=== PATIENT | female | born 1950 | race Caucasian/White ===

== ENCOUNTER 2023-02-13 15:23 | Inpatient (IN) | payer MEDICARE, OTHER ==
[~2023-02-13] VITALS: Ht 162.6 cm; Wt 85.3 kg
--- NOTE | 2023-02-13 20:30 | NUR ---
Admitted from [facility] via gurney Dx: S/P Left tibial Osteotomy with external fixator. Alert and oriented x4, in no acute distress. Routine admission care rendered, oriented to room/call light/BR and TV. Care plan initiated. Needs assessed and attended to.
[2023-02-13] MEDS ORDERED: LEVO150T8 PO (21:13)
[2023-02-13] MEDS ORDERED: HYDR-3980 PO (21:13)
[2023-02-13] MEDS ORDERED: EZET10TA15 PO (21:13)
[2023-02-13] MEDS ORDERED: PANT40TA49 PO (21:13)
[2023-02-13] MEDS ORDERED: ACET325T53 PO (21:13)
[2023-02-13] MEDS ORDERED: BUSP10TA3 PO (21:13)
[2023-02-13] MEDS ORDERED: ENOX40DI SQ (21:13)
[2023-02-13] MEDS ORDERED: LIOT5TAB11 PO (21:13)
[2023-02-13] MEDS ORDERED: MIRA25TA PO (21:13)
[2023-02-13 21:15] VITALS: BP 127/56
[2023-02-13] MEDS ORDERED: MYBETRIQ XX SCH (21:45)
[2023-02-13] MEDS ORDERED: ACETAMINOPHEN 325 MG TABLET PO PRN (21:45)
[2023-02-13] MEDS ORDERED: HYDROCODONE/APAP 10-325 MG TABLET PO PRN (21:45)
[2023-02-13] MEDS ORDERED: EZETIMIBE 10 MG TABLET PO SCH (22:00)
[2023-02-13] MEDS ORDERED: busPIRone 10 MG TABLET PO SCH (22:00)
[2023-02-13] MEDS: ACETAMINOPHEN 325 MG TABLET PO PRN (23:36)
[2023-02-14 04:00] VITALS: BP 136/70
[2023-02-14] MEDS: LEVOTHYROXINE SODIUM 150 MCG TABLET PO SCH (06:08)
[2023-02-14] MEDS: LIOTHYRONINE SODIUM 5 MCG TABLET PO SCH (06:08)
[2023-02-14] MEDS: PANTOPRAZOLE SODIUM 40 MG TABLET.DR PO SCH (06:35)
[2023-02-14 08:00] VITALS: BP 110/88
[2023-02-14] MEDS: REMEDY ESSENTIAL ZINC PASTE 113 GM TOP SCH ×3 (09:00→20:16)
[2023-02-14] MEDS: busPIRone 10 MG TABLET PO SCH ×2 (09:02→20:15)
[2023-02-14] MEDS: ACETAMINOPHEN 325 MG TABLET PO PRN ×3 (09:03→20:15)
[2023-02-14] MEDS: ENOXAPARIN SODIUM 40 MG/0.4 ML DISP.SYRIN SQ SCH (09:04)
--- NOTE | 2023-02-14 10:50 | NUR ---
OUT OF HOSPITAL APPOINTMENT: Per major case detective, follow up appointment scheduled with pt's surgeon, Dr. Lyn, , for Saturday02/19/23 at 11:15am. [facility] sweet pickle maker at 10am.
[2023-02-14] MEDS: OXYCODONE HCL 5 MG TABLET PO PRN ×2 (11:28→22:30)
[2023-02-14] MEDS: NEOMY/BACITRAC/POLYMI OINT 28.35 GM TUBE TOP SCH ×2 (14:12→21:04)
[2023-02-14] MEDS: DOCUSATE SODIUM 100 MG CAPSULE PO SCH (18:42)
[2023-02-14 20:00] VITALS: BP 121/57
[2023-02-14] MEDS: EZETIMIBE 10 MG TABLET PO SCH (20:15)
[2023-02-14 22:00] VITALS: BP 121/57
[2023-02-15 04:00] VITALS: BP 138/58
[2023-02-15 04:58] VITALS: BP 138/58
[2023-02-15] MEDS: LEVOTHYROXINE SODIUM 150 MCG TABLET PO SCH (06:19)
[2023-02-15] MEDS: LIOTHYRONINE SODIUM 5 MCG TABLET PO SCH (06:19)
[2023-02-15] MEDS: PANTOPRAZOLE SODIUM 40 MG TABLET.DR PO SCH ×2 (06:38→08:23)
[2023-02-15 07:45] VITALS: BP 129/55
[2023-02-15] MEDS: OXYCODONE HCL 5 MG TABLET PO PRN ×3 (08:24→20:38)
[2023-02-15] MEDS: DOCUSATE SODIUM 100 MG CAPSULE PO SCH ×2 (08:24→16:50)
[2023-02-15] MEDS: busPIRone 10 MG TABLET PO SCH ×2 (08:24→20:18)
[2023-02-15] MEDS: ENOXAPARIN SODIUM 40 MG/0.4 ML DISP.SYRIN SQ SCH (08:37)
[2023-02-15] MEDS: REMEDY ESSENTIAL ZINC PASTE 113 GM TOP SCH ×2 (08:37→20:17)
[2023-02-15] MEDS: NEOMY/BACITRAC/POLYMI OINT 28.35 GM TUBE TOP SCH ×2 (08:38→20:40)
--- NOTE | 2023-02-15 12:12 | NUR ---
WOUND CARE CONSULT: PT PRESENTS WITH SLIGHT REDNESS AND ITCHING TO INNER BUTTOCKS, PRESENT ON ADMISSION. RECOMMENDATIONS MADE FOR SKIN PROTECTION. LEFT LOWER LEG SWELLING NOTED WITH EXTERNAL FIXATOR. SURGICAL FOLLOW UP APPT NEXT SATURDAY. RECOMMEND LEG ELEVATION. DR STONE WAS NOTIFIED OF DPM CONSULT. MD IN AGREEMENT WITH PLAN OF CARE.
[2023-02-15 16:09] VITALS: BP 128/58
[2023-02-15] MEDS: CLOTRIMAZOLE 1% CREAM 30 GM TUBE TOP SCH (16:52)
[2023-02-15 20:07] VITALS: BP 111/45
[2023-02-15] MEDS: EZETIMIBE 10 MG TABLET PO SCH (20:18)
[2023-02-16 04:16] VITALS: BP 135/62
[2023-02-16] MEDS: OXYCODONE HCL 5 MG TABLET PO PRN ×3 (05:37→20:11)
[2023-02-16] MEDS: LEVOTHYROXINE SODIUM 150 MCG TABLET PO SCH (06:01)
[2023-02-16] MEDS: LIOTHYRONINE SODIUM 5 MCG TABLET PO SCH (06:01)
[2023-02-16] MEDS: PANTOPRAZOLE SODIUM 40 MG TABLET.DR PO SCH (06:34)
[2023-02-16 07:30] VITALS: BP 125/49
--- NOTE | 2023-02-16 07:41 | NUR ---
Received patient lying in bed awake, alert and oriented. No signs of distress, no . On room air saturating at 98%. Patient with external fixator on WBAT. Vital signs taken and recorded On cardiac diet. Needs attended
[2023-02-16] MEDS: busPIRone 10 MG TABLET PO SCH ×2 (08:43→20:11)
[2023-02-16] MEDS: DOCUSATE SODIUM 100 MG CAPSULE PO SCH ×2 (08:43→16:53)
[2023-02-16] MEDS: ENOXAPARIN SODIUM 40 MG/0.4 ML DISP.SYRIN SQ SCH (08:45)
[2023-02-16] MEDS: CLOTRIMAZOLE 1% CREAM 30 GM TUBE TOP SCH ×2 (08:46→16:54)
[2023-02-16] MEDS: NEOMY/BACITRAC/POLYMI OINT 28.35 GM TUBE TOP SCH ×2 (08:46→20:14)
[2023-02-16] MEDS: REMEDY ESSENTIAL ZINC PASTE 113 GM TOP SCH ×2 (08:46→20:12)
--- NOTE | 2023-02-16 10:00 | NUR ---
Seen by physical therapist, ambulated using FWW as tolerated
[2023-02-16] MEDS: TOLTERODINE LA 2 MG CAP.SR.24H PO SCH (11:34)
--- NOTE | 2023-02-16 13:04 | NUR ---
Patient complaining of pain Oxycodone 10mg tab given as ordered
--- NOTE | 2023-02-16 14:44 | NUR ---
INDIVIDUALIZED PLAN OF CARE
[2023-02-16 16:00] VITALS: BP 127/62
[2023-02-16] MEDS: EZETIMIBE 10 MG TABLET PO SCH (20:11)
[2023-02-16 20:30] VITALS: BP 120/61
--- NOTE | 2023-02-17 03:34 | NUR ---
AAOx4 All needs attended. VSS No acute distress noted. S/P left tibial osteotomy. LLE with external fixator intact. Kept comfortable. Pain meds given as needed with relief obtained. Will monitor patient. Continent of bowel and bladder. Fall precautions maintained. Siderails up for safety.
[2023-02-17 04:15] VITALS: BP 142/69
[2023-02-17] MEDS: LIOTHYRONINE SODIUM 5 MCG TABLET PO SCH (06:05)
[2023-02-17] MEDS: LEVOTHYROXINE SODIUM 150 MCG TABLET PO SCH (06:05)
[2023-02-17] MEDS: PANTOPRAZOLE SODIUM 40 MG TABLET.DR PO SCH (06:34)
--- NOTE | 2023-02-17 07:52 | NUR ---
[facility] Nursing Notes: Patient is lying awake, with no S/S of distress, AAx 4, S/P Left Tibial Osteotomy. LLE with External Fixator intact. Denies pain at this time, Call light with in reach, fall and safety precautions implemented. Will continue to monitor.
[2023-02-17 08:05] VITALS: BP 125/67
[2023-02-17] MEDS: REMEDY ESSENTIAL ZINC PASTE 113 GM TOP SCH ×2 (08:23→20:58)
[2023-02-17] MEDS: busPIRone 10 MG TABLET PO SCH ×2 (08:36→20:23)
[2023-02-17] MEDS: TOLTERODINE LA 2 MG CAP.SR.24H PO SCH (08:36)
[2023-02-17] MEDS: DOCUSATE SODIUM 100 MG CAPSULE PO SCH ×2 (08:36→16:51)
[2023-02-17] MEDS: CLOTRIMAZOLE 1% CREAM 30 GM TUBE TOP SCH ×2 (08:46→16:52)
[2023-02-17] MEDS: ENOXAPARIN SODIUM 40 MG/0.4 ML DISP.SYRIN SQ SCH (08:46)
[2023-02-17] MEDS: NEOMY/BACITRAC/POLYMI OINT 28.35 GM TUBE TOP SCH ×2 (08:47→21:20)
[2023-02-17 11:45] VITALS: BP 118/55
[2023-02-17] MEDS: OXYCODONE HCL 5 MG TABLET PO PRN ×2 (14:08→20:23)
[2023-02-17 15:51] VITALS: BP 143/76
[2023-02-17] MEDS: EZETIMIBE 10 MG TABLET PO SCH (20:23)
[2023-02-17 20:54] VITALS: BP 140/65
[2023-02-18] MEDS: LIOTHYRONINE SODIUM 5 MCG TABLET PO SCH (06:26)
[2023-02-18] MEDS: LEVOTHYROXINE SODIUM 150 MCG TABLET PO SCH (06:26)
[2023-02-18 06:30] VITALS: BP 139/76
[2023-02-18] MEDS: PANTOPRAZOLE SODIUM 40 MG TABLET.DR PO SCH (06:42)
[2023-02-18 07:44] VITALS: BP 129/76
[2023-02-18] MEDS: TOLTERODINE LA 2 MG CAP.SR.24H PO SCH (09:10)
[2023-02-18] MEDS: DOCUSATE SODIUM 100 MG CAPSULE PO SCH ×2 (09:10→17:40)
[2023-02-18] MEDS: busPIRone 10 MG TABLET PO SCH ×2 (09:10→20:27)
[2023-02-18] MEDS: REMEDY ESSENTIAL ZINC PASTE 113 GM TOP SCH ×2 (09:11→20:21)
[2023-02-18] MEDS: ENOXAPARIN SODIUM 40 MG/0.4 ML DISP.SYRIN SQ SCH (09:11)
[2023-02-18] MEDS: CLOTRIMAZOLE 1% CREAM 30 GM TUBE TOP SCH ×2 (09:13→17:40)
[2023-02-18] MEDS: NEOMY/BACITRAC/POLYMI OINT 28.35 GM TUBE TOP SCH ×2 (09:14→20:21)
--- NOTE | 2023-02-18 10:05 | NUR ---
PATIENT FORGETFUL: Pt told explicitly that she was being given her Buspar medication this AM. Now she is asking PT if she has gotten it yet. This also happened the last time I was caring for her.
[2023-02-18 16:00] VITALS: BP 120/58
[2023-02-18] MEDS: PROTEIN SUPPLEMENT (PROSTAT) 30 ML LIQUID PO SCH (17:40)
[2023-02-18 20:24] VITALS: BP 133/56
[2023-02-18] MEDS: EZETIMIBE 10 MG TABLET PO SCH (20:27)
[2023-02-18] MEDS: OXYCODONE HCL 5 MG TABLET PO PRN (21:29)
[2023-02-19] MEDS ORDERED: ZOLPIDEM 5 MG TABLET PO PRN
[2023-02-19] MEDS: ZOLPIDEM 5 MG TABLET PO PRN (00:43)
[2023-02-19 04:10] VITALS: BP 121/49
[2023-02-19] MEDS: LEVOTHYROXINE SODIUM 150 MCG TABLET PO SCH (06:30)
[2023-02-19] MEDS: PANTOPRAZOLE SODIUM 40 MG TABLET.DR PO SCH (06:31)
[2023-02-19] MEDS: LIOTHYRONINE SODIUM 5 MCG TABLET PO SCH (06:31)
--- NOTE | 2023-02-19 07:11 | NUR ---
RN NOTE: Received pt from MELVA Mullen. Pt. enquired about her BuSpar and was informed that it'd be given as scheduled. LLE with external fixator intact. Pt kept comfortable and Pain Meds given as needed. Pt. used commode x2 during shift. Fall precautions maintained. Side-rails up for safety. Pt requested early breakfast because she has "an Post-op appointment" this morning.
[2023-02-19 07:40] VITALS: BP 130/70
[2023-02-19] MEDS: DOCUSATE SODIUM 100 MG CAPSULE PO SCH ×2 (08:51→17:37)
[2023-02-19] MEDS: GLUCERNA SHAKE 237 ML CAN PO SCH (08:51)
[2023-02-19] MEDS: PROTEIN SUPPLEMENT (PROSTAT) 30 ML LIQUID PO SCH ×2 (08:51→17:37)
[2023-02-19] MEDS: TOLTERODINE LA 2 MG CAP.SR.24H PO SCH (08:51)
[2023-02-19] MEDS: busPIRone 10 MG TABLET PO SCH ×2 (08:51→20:38)
[2023-02-19] MEDS: ENOXAPARIN SODIUM 40 MG/0.4 ML DISP.SYRIN SQ SCH (08:55)
[2023-02-19] MEDS: REMEDY ESSENTIAL ZINC PASTE 113 GM TOP SCH ×2 (08:57→20:38)
[2023-02-19] MEDS: CLOTRIMAZOLE 1% CREAM 30 GM TUBE TOP SCH ×2 (08:57→17:37)
[2023-02-19] MEDS: NEOMY/BACITRAC/POLYMI OINT 28.35 GM TUBE TOP SCH ×2 (08:57→20:38)
[2023-02-19] MEDS: OXYCODONE HCL 5 MG TABLET PO PRN (09:09)
[2023-02-19 16:00] VITALS: BP 142/74
--- NOTE | 2023-02-19 19:37 | NUR ---
Patient went to follow up ortho appointment this morning return with recommendations, order for pain management and next follow up visit. Recommendations for pain medications text to Dr Mix awaiting reply. Endorsed to oncoming nurse to follow up.
[2023-02-19] MEDS: EZETIMIBE 10 MG TABLET PO SCH (20:38)
[2023-02-19] MEDS: ACETAMINOPHEN ES 500 MG TABLET PO SCH (20:47)
[2023-02-19 21:25] VITALS: BP 125/61
--- NOTE | 2023-02-20 03:36 | NUR ---
AAOx4 All needs attended. LLE with external fixator in placed. (+) good circulation, (+) pulses. Tolerated po meds well. No acute distress noted. Fall precautions maintained.All due meds given without difficulty. Denies any pain at this time. Tylenol given as scheduled. OOB to bedside commode. Voiding well.VSS.
[2023-02-20 06:07] VITALS: BP 114/56
[2023-02-20] MEDS: LIOTHYRONINE SODIUM 5 MCG TABLET PO SCH (06:11)
[2023-02-20] MEDS: LEVOTHYROXINE SODIUM 150 MCG TABLET PO SCH (06:12)
[2023-02-20] MEDS: PANTOPRAZOLE SODIUM 40 MG TABLET.DR PO SCH (06:32)
[2023-02-20 07:46] VITALS: BP 134/62
[2023-02-20] MEDS: busPIRone 10 MG TABLET PO SCH ×2 (08:52→20:45)
[2023-02-20] MEDS: TOLTERODINE LA 2 MG CAP.SR.24H PO SCH (08:52)
[2023-02-20] MEDS: DOCUSATE SODIUM 100 MG CAPSULE PO SCH ×2 (08:52→17:21)
[2023-02-20] MEDS: ACETAMINOPHEN ES 500 MG TABLET PO SCH ×5 (08:56→20:45)
[2023-02-20] MEDS: GLUCERNA SHAKE 237 ML CAN PO SCH (08:56)
[2023-02-20] MEDS: PROTEIN SUPPLEMENT (PROSTAT) 30 ML LIQUID PO SCH ×2 (08:57→17:21)
[2023-02-20] MEDS: ENOXAPARIN SODIUM 40 MG/0.4 ML DISP.SYRIN SQ SCH (08:59)
[2023-02-20] MEDS: REMEDY ESSENTIAL ZINC PASTE 113 GM TOP SCH ×2 (09:00→20:45)
[2023-02-20] MEDS: NEOMY/BACITRAC/POLYMI OINT 28.35 GM TUBE TOP SCH ×2 (09:01→20:48)
[2023-02-20] MEDS: CLOTRIMAZOLE 1% CREAM 30 GM TUBE TOP SCH ×3 (09:01→17:21)
--- NOTE | 2023-02-20 13:45 | NUR ---
INTERDISCIPLINARY TEAM CONFERENCE
[2023-02-20 15:46] VITALS: BP 105/61
[2023-02-20 19:48] VITALS: BP 103/52
[2023-02-20] MEDS: EZETIMIBE 10 MG TABLET PO SCH (20:45)
[2023-02-20] MEDS: OXYCODONE HCL 5 MG TABLET PO PRN (22:21)
[2023-02-21 04:45] VITALS: BP 144/68
--- NOTE | 2023-02-21 05:38 | NUR ---
AAOx4 All needs attended. VSS. Condition unchanged. VSS. OOB to bedside commode. Voiding well Kept comfortable. All due meds given. Medicated for pain as needed with relief noted. LLE external fixator intact. Will monitor patient.
[2023-02-21] MEDS: LEVOTHYROXINE SODIUM 150 MCG TABLET PO SCH (06:07)
[2023-02-21] MEDS: LIOTHYRONINE SODIUM 5 MCG TABLET PO SCH (06:07)
[2023-02-21] MEDS: PANTOPRAZOLE SODIUM 40 MG TABLET.DR PO SCH (06:32)
[2023-02-21 06:59] LABS: MEAN CORPUSCULAR HEMOGLOBIN 29.3 uug (24.7-32.8); MEAN CORPUSCULAR VOLUME 89.9 fL (75.5-95.3); PLATELET COUNT (AUTO) 285 K/uL (179-408)
[2023-02-21 07:31] LABS: IRON, SERUM 62 ug/dL (50-175)
[2023-02-21 07:39] LABS: THYROID STIMULATING HORMONE 3.429 mIU/mL (0.358-3.740)
[2023-02-21 07:46] LABS: ALANINE AMINOTRANSFERASE 20 U/L (14-59); ALKALINE PHOSPHATASE 86 U/L (50-136); ASPARTATE AMINOTRANSFERASE 24 U/L (15-37); BILIRUBIN,TOTAL 0.3 mg/dL (0.2-1.0); CARBON DIOXIDE 31 mmol/L (21-32); CHLORIDE 104 mmol/L (98-107); CHOLESTEROL 190 mg/dL (<200); CREATININE 0.7 mg/dL (0.6-1.3); GLUCOSE 91 mg/dL (74-106); HDL CHOLESTEROL 49 mg/dL (40-60); MAGNESIUM 2.2 mg/dL (1.8-2.4); POTASSIUM 3.6 mmol/L (3.5-5.1); TOTAL PROTEIN, SERUM 6.7 g/dL (6.4-8.2); TRIGLYCERIDES 113 MG/DL (30-150); UREA NITROGEN, BLOOD 13 mg/dL (7-18)
[2023-02-21 08:01] VITALS: BP 123/44
[2023-02-21] MEDS: ACETAMINOPHEN ES 500 MG TABLET PO SCH ×3 (08:16→20:18)
[2023-02-21] MEDS: DOCUSATE SODIUM 100 MG CAPSULE PO SCH ×2 (08:16→16:39)
[2023-02-21] MEDS: TOLTERODINE LA 2 MG CAP.SR.24H PO SCH (08:16)
[2023-02-21] MEDS: GLUCERNA SHAKE 237 ML CAN PO SCH (08:17)
[2023-02-21] MEDS: ENOXAPARIN SODIUM 40 MG/0.4 ML DISP.SYRIN SQ SCH (08:17)
[2023-02-21] MEDS: busPIRone 10 MG TABLET PO SCH ×2 (08:17→20:17)
[2023-02-21] MEDS: REMEDY ESSENTIAL ZINC PASTE 113 GM TOP SCH ×2 (08:18→20:18)
[2023-02-21] MEDS: PROTEIN SUPPLEMENT (PROSTAT) 30 ML LIQUID PO SCH ×2 (09:00→17:00)
[2023-02-21] MEDS: CLOTRIMAZOLE 1% CREAM 30 GM TUBE TOP SCH ×2 (09:02→17:20)
[2023-02-21] MEDS: NEOMY/BACITRAC/POLYMI OINT 28.35 GM TUBE TOP SCH ×2 (09:12→20:19)
[2023-02-21 16:00] VITALS: BP 127/64
[2023-02-21] MEDS: OXYCODONE HCL 5 MG TABLET PO PRN (16:39)
[2023-02-21 20:00] VITALS: BP 116/63
[2023-02-21] MEDS: EZETIMIBE 10 MG TABLET PO SCH (20:17)
[2023-02-21] MEDS: ZOLPIDEM 5 MG TABLET PO PRN (20:18)
[2023-02-21] MEDS ORDERED: ATORVASTATIN 10 MG TABLET PO SCH (21:00)
[2023-02-22 04:00] VITALS: BP 128/62
[2023-02-22] MEDS: OXYCODONE HCL 5 MG TABLET PO PRN (04:48)
--- NOTE | 2023-02-22 04:48 | NUR ---
AAOx4 OOB to bedside commode. Voiding well. LLE external fixator intact. LLE swollen and warm to touch. All needs attended and met. VSS. Pain meds given as needed. Will monitor patient.
[2023-02-22] MEDS: LEVOTHYROXINE SODIUM 150 MCG TABLET PO SCH (06:09)
[2023-02-22] MEDS: LIOTHYRONINE SODIUM 5 MCG TABLET PO SCH (06:09)
[2023-02-22] MEDS: PANTOPRAZOLE SODIUM 40 MG TABLET.DR PO SCH (06:30)
--- NOTE | 2023-02-22 07:00 | NUR ---
Received patient lying in bed awake, alert and oriented. No signs of distress,. On room air Patient with external fixator on WBAT.. Needs attended call light with in reach
[2023-02-22 07:48] VITALS: BP 121/71
[2023-02-22] MEDS: DOCUSATE SODIUM 100 MG CAPSULE PO SCH ×2 (08:09→16:15)
[2023-02-22] MEDS: busPIRone 10 MG TABLET PO SCH ×2 (08:09→21:08)
[2023-02-22] MEDS: ACETAMINOPHEN ES 500 MG TABLET PO SCH ×3 (08:09→19:45)
[2023-02-22] MEDS: TOLTERODINE LA 2 MG CAP.SR.24H PO SCH (08:09)
[2023-02-22] MEDS: ENOXAPARIN SODIUM 40 MG/0.4 ML DISP.SYRIN SQ SCH (08:10)
[2023-02-22] MEDS: GLUCERNA SHAKE 237 ML CAN PO SCH (08:34)
[2023-02-22] MEDS: REMEDY ESSENTIAL ZINC PASTE 113 GM TOP SCH ×2 (08:35→21:07)
[2023-02-22] MEDS: CLOTRIMAZOLE 1% CREAM 30 GM TUBE TOP SCH ×2 (08:35→16:15)
[2023-02-22] MEDS: PROTEIN SUPPLEMENT (PROSTAT) 30 ML LIQUID PO SCH ×2 (08:35→16:15)
[2023-02-22] MEDS: NEOMY/BACITRAC/POLYMI OINT 28.35 GM TUBE TOP SCH ×2 (08:36→21:08)
--- NOTE | 2023-02-22 10:36 | NUR ---
Seen by physical therapist, ambulated using FWW as tolerated
[2023-02-22 16:16] VITALS: BP 101/46
[2023-02-22] MEDS: ACETAMINOPHEN 325 MG TABLET PO PRN ×2 (19:30→19:31)
[2023-02-22] MEDS ORDERED: ACETAMINOPHEN ES 500 MG TABLET PO SCH (19:45)
--- NOTE | 2023-02-22 19:52 | NUR ---
Tylenol ES 2 tabs oral given earlier as scheduled per patient request.
[2023-02-22 20:13] VITALS: BP 94/49
[2023-02-22] MEDS: EZETIMIBE 10 MG TABLET PO SCH (21:08)
[2023-02-22] MEDS: ZOLPIDEM 5 MG TABLET PO PRN (21:08)
[2023-02-23 04:00] VITALS: BP 137/62
[2023-02-23] MEDS: PANTOPRAZOLE SODIUM 40 MG TABLET.DR PO SCH (05:42)
[2023-02-23] MEDS: LIOTHYRONINE SODIUM 5 MCG TABLET PO SCH (05:42)
[2023-02-23] MEDS: LEVOTHYROXINE SODIUM 150 MCG TABLET PO SCH (05:42)
--- NOTE | 2023-02-23 06:18 | NUR ---
Uneventful night. Slept good, no complaint of pain/discomforts presented. All needs attended and met. Vs stable. Patient quite needy, demanding and rude and has attitude. Continue current rehab plan of care.
--- NOTE | 2023-02-23 07:10 | NUR ---
patient in her room, awake with no S/S of discomforts noted, fall and safety precautions implemented. will continue to monitor. call light with in reach
[2023-02-23] MEDS: ACETAMINOPHEN ES 500 MG TABLET PO SCH ×3 (08:02→20:01)
[2023-02-23] MEDS: busPIRone 10 MG TABLET PO SCH ×2 (08:02→20:01)
[2023-02-23] MEDS: TOLTERODINE LA 2 MG CAP.SR.24H PO SCH (08:02)
[2023-02-23] MEDS: DOCUSATE SODIUM 100 MG CAPSULE PO SCH ×2 (08:02→16:27)
[2023-02-23] MEDS: ENOXAPARIN SODIUM 40 MG/0.4 ML DISP.SYRIN SQ SCH (08:03)
[2023-02-23 08:08] VITALS: BP 130/69
[2023-02-23] MEDS: PROTEIN SUPPLEMENT (PROSTAT) 30 ML LIQUID PO SCH ×2 (08:38→16:27)
[2023-02-23] MEDS: GLUCERNA SHAKE 237 ML CAN PO SCH ×3 (08:39→16:27)
[2023-02-23] MEDS: CLOTRIMAZOLE 1% CREAM 30 GM TUBE TOP SCH ×2 (08:39→16:27)
[2023-02-23] MEDS: REMEDY ESSENTIAL ZINC PASTE 113 GM TOP SCH ×2 (08:39→20:02)
[2023-02-23] MEDS: NEOMY/BACITRAC/POLYMI OINT 28.35 GM TUBE TOP SCH ×2 (08:40→20:02)
--- NOTE | 2023-02-23 15:41 | NUR ---
Seen by physical therapist, ambulated using FWW as tolerated
--- NOTE | 2023-02-23 15:45 | NUR ---
Patient is lying in bed awake, with no S/S of distress, Denies pain at this time, Call light with in reach, fall and safety precautions implemented. Will continue to monitor.
[2023-02-23 16:45] VITALS: BP 104/56
[2023-02-23] MEDS: ZOLPIDEM 5 MG TABLET PO PRN (20:01)
[2023-02-23] MEDS: EZETIMIBE 10 MG TABLET PO SCH (20:01)
[2023-02-23 20:11] VITALS: BP 118/53
[2023-02-23] MEDS: OXYCODONE HCL 5 MG TABLET PO PRN (22:00)
[2023-02-24 04:21] VITALS: BP 124/55
[2023-02-24] MEDS: LIOTHYRONINE SODIUM 5 MCG TABLET PO SCH (05:39)
[2023-02-24] MEDS: LEVOTHYROXINE SODIUM 150 MCG TABLET PO SCH (05:39)
[2023-02-24] MEDS: PANTOPRAZOLE SODIUM 40 MG TABLET.DR PO SCH (05:39)
[2023-02-24] MEDS: ACETAMINOPHEN 325 MG TABLET PO PRN ×2 (05:44→05:52)
[2023-02-24] MEDS: ACETAMINOPHEN ES 500 MG TABLET PO SCH ×3 (05:50→19:50)
--- NOTE | 2023-02-24 05:56 | NUR ---
Tylenol ES given unscheduled per patient request.
--- NOTE | 2023-02-24 07:00 | NUR ---
patient in her room, lying in bed awake at this time with no S/S of discomforts noted, fall and safety precautions implemented. will continue to monitor. call light with in reach
[2023-02-24] MEDS: busPIRone 10 MG TABLET PO SCH ×2 (08:01→20:29)
[2023-02-24] MEDS: TOLTERODINE LA 2 MG CAP.SR.24H PO SCH (08:01)
[2023-02-24] MEDS: DOCUSATE SODIUM 100 MG CAPSULE PO SCH ×2 (08:01→16:25)
[2023-02-24] MEDS: ENOXAPARIN SODIUM 40 MG/0.4 ML DISP.SYRIN SQ SCH (08:02)
[2023-02-24 08:38] VITALS: BP 136/52
[2023-02-24] MEDS: PROTEIN SUPPLEMENT (PROSTAT) 30 ML LIQUID PO SCH ×2 (09:00→16:27)
[2023-02-24] MEDS: REMEDY ESSENTIAL ZINC PASTE 113 GM TOP SCH (09:44)
[2023-02-24] MEDS: GLUCERNA SHAKE 237 ML CAN PO SCH ×2 (09:44→16:26)
[2023-02-24] MEDS: CLOTRIMAZOLE 1% CREAM 30 GM TUBE TOP SCH (09:45)
[2023-02-24 16:06] VITALS: BP 115/73
[2023-02-24 20:00] VITALS: BP 134/72
[2023-02-24] MEDS: ZOLPIDEM 5 MG TABLET PO PRN (20:29)
[2023-02-24] MEDS: EZETIMIBE 10 MG TABLET PO SCH (20:29)
[2023-02-25 04:00] VITALS: BP 125/59
[2023-02-25] MEDS: LEVOTHYROXINE SODIUM 150 MCG TABLET PO SCH (05:55)
[2023-02-25] MEDS: PANTOPRAZOLE SODIUM 40 MG TABLET.DR PO SCH (05:55)
[2023-02-25] MEDS: LIOTHYRONINE SODIUM 5 MCG TABLET PO SCH (05:55)
[2023-02-25] MEDS: ACETAMINOPHEN ES 500 MG TABLET PO SCH ×3 (05:56→20:07)
[2023-02-25 07:46] VITALS: BP 134/62
[2023-02-25] MEDS: busPIRone 10 MG TABLET PO SCH ×2 (08:58→20:07)
[2023-02-25] MEDS: TOLTERODINE LA 2 MG CAP.SR.24H PO SCH (08:58)
[2023-02-25] MEDS: DOCUSATE SODIUM 100 MG CAPSULE PO SCH ×2 (08:58→17:38)
[2023-02-25] MEDS: ENOXAPARIN SODIUM 40 MG/0.4 ML DISP.SYRIN SQ SCH (09:04)
[2023-02-25] MEDS: OXYCODONE HCL 5 MG TABLET PO PRN (09:05)
[2023-02-25] MEDS: GLUCERNA SHAKE 237 ML CAN PO SCH ×2 (09:05→17:38)
[2023-02-25] MEDS: PROTEIN SUPPLEMENT (PROSTAT) 30 ML LIQUID PO SCH ×3 (09:06→17:44)
[2023-02-25 16:06] VITALS: BP 124/50
--- NOTE | 2023-02-25 18:01 | NUR ---
18:00 Pins from external fixator were assessed, cleaned and painted with Betadine per order. No signs of infection noted. Pt tolerated procedure well.
[2023-02-25] MEDS: EZETIMIBE 10 MG TABLET PO SCH (20:07)
[2023-02-25] MEDS: ZOLPIDEM 5 MG TABLET PO PRN ×2 (20:12→20:15)
[2023-02-25 20:37] VITALS: BP 120/61
[2023-02-26] MEDS: OXYCODONE HCL 5 MG TABLET PO PRN ×2 (00:57→07:03)
[2023-02-26 04:06] VITALS: BP 128/57
[2023-02-26] MEDS: LEVOTHYROXINE SODIUM 150 MCG TABLET PO SCH (06:03)
[2023-02-26] MEDS: LIOTHYRONINE SODIUM 5 MCG TABLET PO SCH (06:03)
[2023-02-26] MEDS: PANTOPRAZOLE SODIUM 40 MG TABLET.DR PO SCH (06:42)
--- NOTE | 2023-02-26 07:25 | NUR ---
RN NOTE -Patient is lying in bed awake, with no S/S of distress. Pt requested pain medication and sleep aid Call light with in reach, fall and safety precautions implemented. Will continue to monitor.
[2023-02-26 07:43] VITALS: BP 118/49
--- NOTE | 2023-02-26 08:00 | NUR ---
Awake, alert, oriented x 4. LLE with external fixator. Denies pain at this time. Concerned about DC plan for today
[2023-02-26] MEDS: busPIRone 10 MG TABLET PO SCH (08:42)
[2023-02-26] MEDS: TOLTERODINE LA 2 MG CAP.SR.24H PO SCH (08:43)
[2023-02-26] MEDS: DOCUSATE SODIUM 100 MG CAPSULE PO SCH (08:43)
[2023-02-26] MEDS: ACETAMINOPHEN ES 500 MG TABLET PO SCH ×2 (08:44→12:21)
[2023-02-26] MEDS: PROTEIN SUPPLEMENT (PROSTAT) 30 ML LIQUID PO SCH (08:45)
[2023-02-26] MEDS: GLUCERNA SHAKE 237 ML CAN PO SCH (08:45)
[2023-02-26] MEDS: ENOXAPARIN SODIUM 40 MG/0.4 ML DISP.SYRIN SQ SCH (08:49)
--- NOTE | 2023-02-26 14:25 | NUR ---
With discharge order to SNF. Report given to Tre. DC instruction given, verbalized understanding. Discharged in fair condition, not in distress. afebrile, with external fixator
== END 2023-02-26 14:25 | DRG 560 ==
LOC: MEDSURG3 20:44
PROVIDERS: ADMIT Physical Medicine & Rehabilitation Pain Medicine; ATTEND Physical Medicine & Rehabilitation Pain Medicine
DX: S82.202D Unspecified fracture of shaft of left tibia, subsequent encounter for closed fracture with routine healing (principal); D68.59 Other primary thrombophilia; Z47.89 Encounter for other orthopedic aftercare; R53.1 Weakness; X58.XXXD Exposure to other specified factors, subsequent encounter; E03.9 Hypothyroidism, unspecified; E78.5 Hyperlipidemia, unspecified; N32.81 Overactive bladder; R62.7 Adult failure to thrive; Z96.651 Presence of right artificial knee joint; E66.9 Obesity, unspecified; Z68.32 Body mass index [BMI] 32.0-32.9, adult; Z88.6 Allergy status to analgesic agent
CPT/HCPCS: 36415; 83550; 83735; 84100; 84443; 85025; 97535-GO-CO; A4663; A9150; J1650

== ENCOUNTER 2023-03-17 19:29 | Emergency (ER) | payer MEDICARE, OTHER ==
[~2023-03-17] VITALS: Ht 165.1 cm; Wt 72.6 kg
[~2023-03-17 19:29] MED LIST: ACET325T53 PO; BUSP10TA3 PO; ENOX40DI SQ; EZET10TA15 PO; HYDR-3980 PO; LEVO150T8 PO; LIOT5TAB11 PO; MIRA25TA PO; PANT40TA49 PO
--- NOTE | 2023-03-17 19:30 | NUR ---
PT BIBA FOR COVID SYMTOMS.
--- NOTE | 2023-03-17 19:50 | NUR ---
Pt stated not to call her son because son "disowned her".
--- NOTE | 2023-03-17 19:55 | NUR ---
AT BEDSIDE FOR EVAL.
[2023-03-17] MEDS ORDERED: ACET325C7 PO (20:13)
[2023-03-17] MEDS ORDERED: VANC250C5 IV (20:13)
[2023-03-17] MEDS ORDERED: LEVO500T90 PO (20:13)
[2023-03-17] MEDS ORDERED: SENN8.6T19 PO (20:13)
[2023-03-17] MEDS ORDERED: EZET10TA15 PO (20:13)
[2023-03-17] MEDS ORDERED: MIRA25TA PO (20:13)
[2023-03-17] MEDS ORDERED: PIPE3.3749 IV (20:13)
[2023-03-17] MEDS ORDERED: LEVO150T8 PO (20:13)
[2023-03-17] MEDS ORDERED: PSYL575P22 PO (20:13)
[2023-03-17] MEDS ORDERED: MAGN400O6 PO (20:13)
[2023-03-17] MEDS ORDERED: TRAZ-182 PO (20:13)
[2023-03-17] MEDS ORDERED: LIOT5TAB11 PO (20:13)
[2023-03-17] MEDS ORDERED: POLY17PO4 PO (20:13)
[2023-03-17] MEDS ORDERED: LACT1CAP61 PO (20:13)
[2023-03-17] MEDS ORDERED: PANT40TA49 PO (20:13)
[2023-03-17] MEDS ORDERED: ALPR0.255 PO (20:13)
[2023-03-17] MEDS ORDERED: NA P133E RC (20:13)
[2023-03-17] MEDS ORDERED: HYDR4TAB4 PO (20:13)
[2023-03-17] MEDS ORDERED: ENOX40DI SUBCUT (20:13)
[2023-03-17] MEDS ORDERED: ONDA4TAB5 PO (20:13)
[2023-03-17] MEDS ORDERED: BISA10SU61 RC (20:13)
[2023-03-17] MEDS ORDERED: ACET-2030 PO (20:13)
[2023-03-17] MEDS ORDERED: BUSP5TAB3 PO (20:13)
[2023-03-17] MEDS ORDERED: DOCU-141 PO (20:13)
[2023-03-17] MEDS ORDERED: IV NORMAL SALINE 1000 ML BAG IV ONE (20:15)
[2023-03-17] MEDS ORDERED: ONDANSETRON 4 MG/2 ML VIAL IV ONE (20:15)
--- NOTE | 2023-03-17 20:15 | NUR ---
COVID SWAB COLLECTED/ SENT TO LAB.
[2023-03-17 20:40] LABS: HEMATOCRIT 43.2 % (31.2-41.9); MEAN CORPUSCULAR HEMOGLOBIN 28.9 uug (24.7-32.8); MEAN CORPUSCULAR VOLUME 88.2 fL (75.5-95.3); PLATELET COUNT (AUTO) 239 K/uL (179-408)
[2023-03-17 20:55] LABS: ALANINE AMINOTRANSFERASE 20 U/L (14-59); ALKALINE PHOSPHATASE 91 U/L (50-136); ASPARTATE AMINOTRANSFERASE 20 U/L (15-37); BILIRUBIN,DIRECT 0.1 mg/dL (0.0-0.2); BILIRUBIN,TOTAL 0.3 mg/dL (0.2-1.0); CARBON DIOXIDE 30 mmol/L (21-32); CHLORIDE 102 mmol/L (98-107); CREATININE 0.8 mg/dL (0.6-1.3); GLUCOSE 96 mg/dL (74-106); LIPASE 100 U/L (73-393); POTASSIUM 3.3 mmol/L (3.5-5.1); TOTAL PROTEIN, SERUM 6.9 g/dL (6.4-8.2); UREA NITROGEN, BLOOD 4 mg/dL (7-18)
--- NOTE | 2023-03-17 21:05 | NUR ---
LAB CALLED WITH CRITICAL VALUE, COVID +. AWARE.
[2023-03-17] MEDS ORDERED: ONDANSETRON 4 MG/2 ML VIAL ONE (21:09)
[2023-03-17] MEDS ORDERED: SWABABLE VALVE TRANSFER SET EA MC ONE (21:11)
[2023-03-17] MEDS ORDERED: IV NORMAL SALINE 250 ML IV ONE (21:11)
[2023-03-17] MEDS ORDERED: IOHEXOL 300MG/ML 100 ML INFUS..BTL ONE (21:11)
--- NOTE | 2023-03-17 21:30 | NUR ---
PT VOIDED ON BEDPAN. URINE COLLECTED / SENT TO LAB.
--- NOTE | 2023-03-17 21:45 | NUR ---
PT TO CT VIA [facility].
[2023-03-17] MEDS ORDERED: POTASSIUM BICARBONATE/CIT AC 25 MEQ TABLET.EFF PO ONE (22:00)
[2023-03-17] MEDS ORDERED: POTASSIUM BICARBONATE/CIT AC 25 MEQ TABLET.EFF ONE (22:24)
[2023-03-17] MEDS ORDERED: PROCHLORPERAZINE EDISYLATE 10 MG/2 ML VIAL ONE (23:10)
--- NOTE | 2023-03-17 23:10 | NUR ---
PT UP TO BEDSIDE COMMODE , VOIDING.
[2023-03-17] MEDS ORDERED: DIPH1TAB PO (23:15)
[2023-03-17] MEDS ORDERED: PROC-11 PO (23:15)
[2023-03-17] MEDS ORDERED: HYDROMORPHONE 1 MG/1 ML DISP.SYRIN IV ONE (23:45)
[2023-03-17] MEDS ORDERED: HYDROMORPHONE 1 MG/1 ML DISP.SYRIN ONE (23:58)
--- NOTE | 2023-03-18 00:10 | NUR ---
REPORT GIVEN TO DARVIN AT [facility]. PT STABLE, VSS WITH NAD OBSERVED.
--- NOTE | 2023-03-18 00:30 | NUR ---
[facility] CALLED TO TRANSPORT PT BACK TO HER FACILITY. ETA 6 AM.
[2023-03-18 01:56] LABS: *BILIRUBIN,URIN NEGATIVE (NEGATIVE); *BLOOD, URINE NEGATIVE (NEGATIVE); *CLARITY,URINE CLEAR (CLEAR); *COLOR,URINE YELLOW (YELLOW); *KETONES,URINE 1+ (NEGATIVE); *UROBILINOGEN,URINE 0.2 E.U./dl (NORMAL); LEUKOCYTE ESTERASE ,URINE NEGATIVE (NEGATIVE); NITRITE, URINE NEGATIVE (NEGATIVE); UGLUCOSE NEGATIVE (NEGATIVE)
--- NOTE | 2023-03-18 02:12 | NUR ---
4 DIFFERENT AMBULANCE COMPANYS WERE CALLED, THE SOONEST THEY COULD TRANSPORT PT WOULD BE 6;30 AM.
--- NOTE | 2023-03-18 02:30 | NUR ---
PT UP OOB TO BEDSIDE COMMODE. PT VOIDED.
--- NOTE | 2023-03-18 02:30 | NUR ---
Note jenny in ED - 03/18/23 at 0300 by [email or web address] PT UP TO BEDSIDE COMMODE . PT VOIDED.
--- NOTE | 2023-03-18 02:57 | NUR ---
PT A,A AND O X 4 WITH NO C/O PAIN WITH SLIGHT NAUSEA, NAD OBSERVED.
[2023-03-18] MEDS ORDERED: PROCHLORPERAZINE EDISYLATE 10 MG/2 ML VIAL ONE (05:41)
[2023-03-18] MEDS ORDERED: PROCHLORPERAZINE EDISYLATE 10 MG/2 ML VIAL IV ONE (05:45)
--- NOTE | 2023-03-18 07:15 | NUR ---
REPORT GIVEN TO ALIREZA FRYE.
--- NOTE | 2023-03-18 08:19 | NUR ---
0716am: Dry Cleaning Machine Operator assumes care: Per branner machine tender RN Claudine, this patient has been discharged since 0510am by branner machine tender ER doctor named Dr Valderrama, pending ambulance cigar packer and picker with ETA of 0600am by [facility]. 0815am: I called [facility] myself to follow up the ride. Dispatcher Scott said that there was no ambulance cigar packer and picker arranged last night. I arranged with the dispatcher Scott. The new [facility] ambulance cigar packer and picker: [id number]. Patient was updated. Patient does not really want to go back because she does not like it there. Dr Posey (morning shift ER doctor) and transmitter engineer in charge Clemencia notified.
[2023-03-18] MEDS ORDERED: ACETAMINOPHEN ES 500 MG TABLET ONE ×2 (08:29→08:36)
[2023-03-18] MEDS ORDERED: ACETAMINOPHEN 325 MG TABLET PO ONE ×2 (08:45)
--- NOTE | 2023-03-18 09:20 | NUR ---
Patient used her bedside commode 3x to void with one BM of soft brown formed stool (small quantity). Patient was also assisted with ike-anal care . At 0905am, the [employer] dispatcher named Scott said, "The crew is now parking in your parking lot."
--- NOTE | 2023-03-18 09:33 | NUR ---
[facility] unit [facility] is here. Hands off report given to EMT Navyai.
--- NOTE | 2023-03-18 09:48 | NUR ---
Patient left ER in stable condition via BLS ambulance. Patient was discharged to [facility] by Dr Valderrama since 0510am today. Written and verbal after care instructions given to patient by previous RN Claudine and I reviewed it again with the patient. Patient verbalized understanding and compliance of instructions. Stressed follow up with primary doctor, orthopedic doctor and GI doctor or return to ER for worsening s/s.
--- NOTE | 2023-03-19 07:23 | NUR ---
REGARDING THE COMPAZINE GIVEN 03/17 AT 2310. I YORDAN I RECEIVED A VERBAL ORDER FROM DR Kiran LEAVITT.
== END 2023-03-18 09:48 ==
LOC: ER 19:38
DX: U07.1 COVID-19 (principal); R10.31 Right lower quadrant pain; R10.32 Left lower quadrant pain; R19.7 Diarrhea, unspecified; Z88.6 Allergy status to analgesic agent; Z88.8 Allergy status to other drugs, medicaments and biological substances; Z79.2 Long term (current) use of antibiotics; Z79.899 Other long term (current) drug therapy
CPT/HCPCS: 99285; 74177; 96374; 96361; 87426; 80076; 80048; 83690; 83735; 85025; 36415; 96375; 81003; J2405; Q9967; J0780 ×2; J1170; J7040; A4663; A9150